=== PATIENT | female | born 1945 | race Caucasian/White ===

== ENCOUNTER 2019-06-17 06:57 | Day surgery (SDC) | payer MEDICARE ==
--- NOTE | 2019-06-11 16:31 | HP ---
PREOPERATIVE HISTORY AND PHYSICAL: DATE OF ADMISSION/SURGERY: 06/17/19 DATE OF OFFICE VISIT/ENCOUNTER: 05/19/19 ATTENDING SURGEON: Arin Borden MD * (DICTATED BY SHELBY JOHNSON) PROCEDURE: Carpometacarpal arthroplasty left thumb, de Quervain's release left wrist. HISTORY OF PRESENT ILLNESS: This is a 73-year-old female who has had ongoing pain at the base of her left thumb for over a year, it has progressively worsened and it increases with use of her left hand particularly when she is trying to grasp or squeeze something, there has not been any injury to the thumb. X-rays have shown osteoarthritis at the carpometacarpal joint. She has failed conservative treatment including cortisone injection. She does not complain of any numbness or tingling. Additionally, she is complaining of pain at the radial aspect of the left wrist. She has tenderness to palpation along the first dorsal compartment, and a positive Reji's test. She has been diagnosed de Quervain's, tenosynovitis. The patient would like to proceed with surgical intervention for both of these problems. Her primary care physician is Dr. Niru Lagos and the patient is prescribed [place] and tramadol regularly for chronic pain. PAST MEDICAL HISTORY: 1. Diabetes. 2. Hypertension. 3. Hypercholesterolemia. 4. Macular degeneration. 5. GERD. 6. Arthritis. 7. Anxiety/depression. PAST SURGICAL HISTORY: 1. x3. 2. Gastric bypass. 3. Hysterectomy. 4. Excision of cyst from right side of neck. CURRENT MEDICATIONS: 1. Atenolol 25 mg 1 tab daily. 2. Cymbalta 60 mg daily. 3. Diclofenac sodium 1% apply 1 g to affected area 3 to 4 times a day. 4. Ezetimibe 10 mg daily. 5. Fish oil extra strength 1000 mg 2 tabs b.i.d. 6. Hydrochlorothiazide 25 mg daily. 7. Hydrocodone acetaminophen 5/325 one to two tabs four times a day p.r.n. pain. 8. Lisinopril 5 mg daily. 9. Magnesium oxide 400 mg daily. 10. Metformin HCl 500 mg 2 tabs twice a day. 11. Multivitamin daily. 12. Nystatin p.r.n. 13. Ocuvite Adult formula 1 tab daily. 14. Omeprazole 20 mg daily. 15. Tramadol HCl ER 100 mg 1 a day as necessary for severe headaches. 16. Vitamin D3 q.month. ALLERGIES: SULFA, ANTIBIOTICS and PHENOBARBITAL cause hives. FAMILY HISTORY: Diabetes, heart disease, cancer. SOCIAL HISTORY: The patient is retired. She is a former smoker. She quit in 1971. She denies recreational drug use and does not drink alcohol. REVIEW OF SYSTEMS: Negative for general, cephalic, cardiovascular, respiratory , GI/, other musculoskeletal, integumentary, endocrine, neurologic and hematologic symptoms. Infectious disease: Negative for MRSA, hepatitis C, HIV. PHYSICAL EXAMINATION GENERAL: A well-developed, well-nourished 73-year-old female, in no acute distress. VITAL SIGNS: Height 5 feet 2-1/2 inches, weight 156 pounds, pulse rate 72, blood pressure 162/92. HEENT: Normocephalic, atraumatic. Pupils are equal round and reactive to light and accommodation. Extraocular movements are intact. NECK: Supple, no palpable lymph nodes. Throat is clear. PULMONARY: Lungs are clear to auscultation bilaterally. No wheezes, rales, or rhonchi. CARDIOVASCULAR: Regular rate and rhythm. S1, S2. No murmurs, rubs, or gallops. No edema. ABDOMEN: Positive bowel sounds, soft, nontender. MUSCULOSKELETAL: On exam of her left hand, she has tenderness to palpation at the base of the thumb as well as along the first dorsal compartment. She has a bit of prominence of the first metacarpal. She has increased pain with abduction of the thumb and extension of the wrist. Good apposition of the thumb to the base of the pinky. She has positive grind test and a positive Reji's test. Neurovascular function is intact. NEUROLOGICAL: Alert and oriented x3. Cranial nerves II through XII are intact. Sensation is intact to light touch. DIAGNOSTIC STUDIES/LAB DATA: Imaging studies: X-rays at the left thumb/wrist show osteoarthritis of the carpometacarpal joint of the thumb. IMPRESSION: Left thumb carpometacarpal joint osteoarthritis and left wrist de Quervain's tenosynovitis. PLAN: The patient is scheduled to undergo a carpometacarpal arthroplasty left thumb and a de Quervain's release left wrist with Dr. Borden on 06/17/19. She will return to the office in 10 days postop for followup and suture removal. A prescription for Percocet was e-scribed to the patient's pharmacy for postoperative pain management. The patient will plan on ceasing her use of the hydrocodone, acetaminophen, and tramadol as prescribed by her primary care physician while she is using the Percocet. This plan has been discussed with her primary care physician Dr. Lagos. SHELBY JOHNSON [id number]/[facility] #: [id number] GEMINI
[~2019-06-17 06:57] MED LIST: Acetaminophen TAB* 325 MG ONE; Acetaminophen TAB* 325 MG PO ONE; Buffered Lidocaine 1% SYRIN* 1 ML/SYRINGE INTRADERM ONE; Gabapentin CAP(*) 300 MG ONE; Gabapentin CAP(*) 300 MG PO ONE; Lactated Ringers 1000 ML Bag* 1,000 ML IV SCH
[2019-06-17] MEDS ORDERED: ceFAZolin 2 GM PREMIX in ORs 2 GM/50 ML BAG ONE (07:15)
[2019-06-17] MEDS ORDERED: fentaNYL* 50 MCG/ML 2 ML VIAL (100 MCG VIAL) IV PRN (07:58)
[2019-06-17] MEDS ORDERED: DiMENhydriNATE IV* 50 MG/ML VIAL IV PUSH PRN (07:58)
[2019-06-17] MEDS ORDERED: Naloxone* 0.4 MG/ML 1 ML VIAL IV PRN (07:58)
[2019-06-17] MEDS ORDERED: Ondansetron INJ* 2 MG/ML VIAL IV PRN (07:58)
[2019-06-17] MEDS ORDERED: Midazolam* 1 MG/ML 2 ML VIAL (2 MG) ONE (08:49)
[2019-06-17] MEDS ORDERED: fentaNYL* 50 MCG/ML 2 ML VIAL (100 MCG VIAL) ONE ×2 (08:49→09:42)
[2019-06-17] MEDS ORDERED: Lidocaine 1% INJ* 10 MG/ML 30 ML SDV ONE (09:02)
[2019-06-17] MEDS ORDERED: Bupivacaine 0.5% SDV PF* 30ML VIAL ONE (09:02)
[2019-06-17] MEDS ORDERED: Famotidine IV* 10 MG/ML 2 ML (20 mg) ONE (09:07)
[2019-06-17] MEDS ORDERED: Lidocaine 2% PF * 5 ML VIAL ONE (09:12)
[2019-06-17] MEDS ORDERED: Ondansetron INJ* 2 MG/ML VIAL ONE (09:26)
[2019-06-17] MEDS ORDERED: Propofol* 10 MG/ML 20 ML BTL ONE (09:26)
[2019-06-17 11:00] VITALS: BP 118/52
--- NOTE | 2019-06-17 17:54 | OP ---
DATE OF OPERATION: 06/17/19 - [facility] DATE OF : 43 SURGEON: Arin Borden MD. IT ADMINISTRATOR: SHELBY Mendosa ANESTHESIA: General. PRE-OP DIAGNOSES: Left thumb carpometacarpal arthritis and left de Quervain's tenosynovitis. POST-OP DIAGNOSES: Left thumb carpometacarpal arthritis and left de Quervain's tenosynovitis. OPERATIVE PROCEDURE: Left de Quervain's release and left thumb carpometacarpal arthroplasty. ESTIMATED BLOOD LOSS: Zero. TOURNIQUET TIME: About 30 minutes. INDICATIONS FOR PROCEDURE: Robyn is a 73-year-old woman who has pain at the base of her left thumb and the radial aspect of her left wrist. Clinically, she has de Quervain's tenosynovitis and x-ray shows severe degenerative arthritis at the thumb CMC joint. She presents for CMC arthroplasty and left de Quervain's release. DESCRIPTION OF PROCEDURE: The patient was brought to the operating room, was given a general anesthetic and placed in the supine position on the operating table with a tourniquet around her left upper arm. The skin of her left upper extremity was prepped and draped in usual sterile fashion. The upper extremity was exsanguinated and the tourniquet elevated to 250 mmHg and S-shaped incision was made centered at the thumb CMC joint. We dissected bluntly through the subcutaneous tissue. Branches of the radial sensory nerve were located and then were retracted by surgical manager Briana Marcos, whose assistance was essential for safe completion of the case. The first dorsal compartment was incised completely releasing the APL and EPB tendons, which were in separate compartments. The radial artery was dissected off of the thumb CMC joint and again retracted by the surgical manager. A distally based U-shaped flap was created at the CMC joint capsule and subperiosteally dissected off of the trapezium. Trapezium was then removed piecemeal with a rongeur, it was completely removed including all of its osteophytes. The wound was then irrigated with saline and the CMC joint capsule was secured to the FCR tendon in the base of the wound. This gave a very nice abduction position of the metacarpal and the MP joint was flexed about 30 degrees in a resting position. The remainder of the capsule was closed with 4-0 nylon suture and then the skin edges were reapproximated with 4-0 nylon suture. The wound was dressed with Xeroform, 4x4, Webril and a thumb spica splint holding the thumb metacarpal abducted. The patient tolerated the procedure well, was awakened from general anesthesia and brought to the recovery room in good condition. [id number]/[facility] #: [id number]
== END 2019-06-17 11:10 | disposition home or self-care (01) ==
LOC: OREAST 06:57
PROVIDERS: ATTEND Orthopaedic Surgery
DX: M18.12 Unilateral primary osteoarthritis of first carpometacarpal joint, left hand (principal); M65.4 Radial styloid tenosynovitis [de Quervain]; E11.9 Type 2 diabetes mellitus without complications; Z79.84 Long term (current) use of oral hypoglycemic drugs; I10 Essential (primary) hypertension; E78.00 Pure hypercholesterolemia, unspecified; K21.9 Gastro-esophageal reflux disease without esophagitis; F41.8 Other specified anxiety disorders; M19.90 Unspecified osteoarthritis, unspecified site; Z87.891 Personal history of nicotine dependence
CPT/HCPCS: 88304; 88311; A9270-GY; J0690; J2250; J2405; J2704; J3010; J3490

== ENCOUNTER 2022-11-02 09:53 | Observation (INO) ==
[~2022-11-02 09:53] MED LIST changes: -Acetaminophen TAB* 325 MG ONE; -Acetaminophen TAB* 325 MG PO ONE; +Buffered Lidocaine 1% SYRIN 1 ml INTRADERM ONE; -Buffered Lidocaine 1% SYRIN* 1 ML/SYRINGE INTRADERM ONE; -Gabapentin CAP(*) 300 MG ONE; -Gabapentin CAP(*) 300 MG PO ONE; -Lactated Ringers 1000 ML Bag* 1,000 ML IV SCH; +Lactated Ringers 1000 ml BAG 1,000 ML IV SCH; +Naloxone 0.4 mg VIAL 0.4 mg/ml 1 ml VIAL IV PRN; +Ondansetron 4 mg VIAL 2 MG/ML 2 ml VIAL IV PRN; +Tranexamic Acid 1,000 MG in NS 0.9% 50 ML IV ONE; +fentaNYL 100 mcg/2 ml 50 MCG/ML VIAL IV PRN; +oxyCODONE/Acetamin 5/325 mg TAB PO PRN
[2022-11-02] MEDS ORDERED: ceFAZolin 2 GM in NS PREMIX 2 GM/100 ML BAG IVPB ONE (10:24)
[2022-11-02 10:41] LABS: Rapid COVID-19 Molecular Undetected (Undetected)
[2022-11-02] MEDS ORDERED: Midazolam 2 mg/2 ml VIAL 1 mg/ml 2 ml VIAL (2 mg) ONE (11:57)
[2022-11-02] MEDS ORDERED: ROPIVACAINE 5 MG/ML 30 ML BTL (0.5%) ONE (12:20)
[2022-11-02] MEDS ORDERED: Midazolam 5 mg/5 ml VIAL 1 mg/ml 5 ml VIAL (5 mg) ONE (12:20)
[2022-11-02] MEDS ORDERED: Bupivacaine-MPF SPINAL 7.5 MG/ML - 2ML AMP ONE (13:47)
[2022-11-02] MEDS ORDERED: Propofol 10 MG/ML 20 ML BTL ONE (15:03)
[2022-11-02] MEDS ORDERED: Ondansetron ODT 4 mg TAB 4 MG TAB PO PRN (16:01)
[2022-11-02] MEDS ORDERED: Lactulose 30 ml UDC PO PRN (16:01)
[2022-11-02] MEDS ORDERED: Magnesium Hydroxide LIQ 30 ML UDC PO PRN (16:01)
[2022-11-02] MEDS ORDERED: Morphine 2 MG/ML SYRINGE IV PRN (16:01)
[2022-11-02] MEDS ORDERED: Ondansetron 4 mg VIAL 2 MG/ML 2 ml VIAL IV PRN (16:01)
[2022-11-02] MEDS ORDERED: Lactated Ringers 1000 ml BAG 1,000 ML IV SCH (17:00)
[2022-11-02] MEDS ORDERED: Dextrose 50% Syringe 50 ml 25 GM/50 ML SYRINGE IV PUSH PRN (17:06)
[2022-11-02] MEDS ORDERED: oxyCODONE/Acetamin 5/325 mg TAB ONE (17:17)
[2022-11-02] MEDS ORDERED: Multivitamins/Mins AREDS2 (NF) CAP PO SCH (21:00)
[2022-11-02] MEDS ORDERED: CMCS:Epleronone 25 mg TAB (NF) PO SCH (21:00)
[2022-11-02] MEDS: Magnesium Hydroxide LIQ 30 ML UDC PO SCH (21:37)
[2022-11-02] MEDS: DULoxetine DR 60 mg CAP PO SCH (21:41)
[2022-11-02] MEDS: ceFAZolin 1 GM ADVAN 1 GM in NS 0.9% 50 ML 50 ML IVPB SCH (23:53)
[2022-11-03 06:22] LABS: Hematocrit 32.8 % (35-45); Hemoglobin 11.1 g/dL (11.5-14.3); Mean Platelet Volume 7.8 fL (7.5-11.2); Platelet Count 189 10^3/uL (150-450)
[2022-11-03 06:33] LABS: Calcium 8.2 mg/dL (8.6-10.3); Creatinine, Serum 0.58 mg/dL (0.51-0.95); Magnesium 2.2 mg/dL (1.9-2.7); Potassium 4.1 mmol/L (3.5-5.0); eGFR CKD-EPI 93.1 (>60)
[2022-11-03] MEDS: ceFAZolin 1 GM ADVAN 1 GM in NS 0.9% 50 ML 50 ML IVPB SCH ×2 (07:27→15:07)
[2022-11-03] MEDS: DULoxetine DR 60 mg CAP PO SCH (08:22)
[2022-11-03] MEDS: Magnesium Hydroxide LIQ 30 ML UDC PO SCH (08:22)
[2022-11-03] MEDS ORDERED: Vitamin THERAPEUTIC TAB PO SCH (09:00)
[2022-11-03 11:06] VITALS: BP 150/76
== END 2022-11-03 15:59 | disposition home or self-care (01) ==
LOC: SSU 09:53 → OR 09:53
PROVIDERS: ADMIT Orthopaedic Surgery Adult Reconstructive Orthopaedic Surgery; ATTEND Orthopaedic Surgery Adult Reconstructive Orthopaedic Surgery